=== PATIENT | female | born 1955 | race Caucasian/White ===

== ENCOUNTER 2024-09-03 14:16 | Emergency (ER) | payer MEDICARE, OTHER ==
[~2024-09-03] VITALS: Ht 170.2 cm; Wt 87.1 kg
[2024-09-03 14:35] VITALS: TEMP 98
[2024-09-03 15:08] LABS: BASOPHILS % 0.8 % (0.0-1.0); EOSINOPHILS % 6.1 % (0.0-6.0); LYMPHOCYTES % 27.0 % (18.0-39.1); MONOCYTES % 8.8 % (4.4-11.3); NEUTROPHILS % 57.0 % (38.7-80.0); RED CELL DISTRIBUTION WIDTH 12.1 % (11.7-14.4)
[2024-09-03] MEDS ORDERED: SODIUM CHLORIDE 0.9% 1000ML 1,000 ML IV SCH (15:15)
[2024-09-03 15:35] LABS: EST GLOMERULAR FILTRATION RATE 96.0 ML/MIN (>=60)
[2024-09-03 18:00] VITALS: PULSE 72; RESP 18
[2024-09-03 18:44] VITALS: BP 152/84; PULSE 78; RESP 18; TEMP 98.2; O2SAT 98
[2024-09-03] MEDS: KETOROLAC TROMETHAMINE 30 MG/ML VIAL IV STA (18:53)
[2024-09-03] MEDS: DIPHENHYDRAMINE HCL 25 MG CAP PO ONE (18:54)
[2024-09-03] MEDS: METOCLOPRAMIDE HCL 10 MG/2ML VIAL IV ONE (18:54)
[2024-09-03] MEDS ORDERED: SODIUM CHLORIDE 0.9% 100 ML ONE (20:04)
[2024-09-03] MEDS ORDERED: IOPAMIDOL 370 MG/ML 100 ML INFUS..BTL INJ ONE (20:04)
== END 2024-09-03 18:40 | disposition home or self-care (01) ==
LOC: ER 15:04
DX: R51.9 Headache, unspecified (principal); R03.0 Elevated blood-pressure reading, without diagnosis of hypertension; I65.22 Occlusion and stenosis of left carotid artery; Z86.73 Personal history of transient ischemic attack (TIA), and cerebral infarction without residual deficits
CPT/HCPCS: 36415; 70496; 70498; 80053; 85025; 99284; J7050; Q9967